=== PATIENT | female | born 1965 | race American Indian/Alaskan Native ===

== ENCOUNTER 2017-08-31 15:26 | Emergency (ER) | payer OTHER ==
[2017-08-31 15:35] VITALS: BP 147/96
[2017-08-31] MEDS ORDERED: TYLENOL PO ONE (16:47)
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
== END 2017-08-31 17:38 | disposition home or self-care (01) ==
LOC: ED 15:26
DX: S13.4XXA Sprain of ligaments of cervical spine, initial encounter (principal); I10 Essential (primary) hypertension; K21.9 Gastro-esophageal reflux disease without esophagitis; V49.49XA Driver injured in collision with other motor vehicles in traffic accident, initial encounter; Y93.89 Activity, other specified; Y92.89 Other specified places as the place of occurrence of the external cause; Y99.8 Other external cause status
CPT/HCPCS: 99282